=== PATIENT | female | born 1975 | race American Indian/Alaskan Native ===

== ENCOUNTER 2017-09-23 07:35 | Outpatient (CLI) | payer MEDICAID, OTHER ==
--- NOTE | 2017-09-23 11:24 | Ultrasound Report ---
ULTRASOUND EXTREMITY NONVASCULAR LIMITED LEFT History: Buttock pain. Technique: Targeted turcios scale ultrasound was performed in both gluteal regions at the site of abnormality. Findings: I spoke with the patient personally after the images were acquired. The patient reports a history of cosmetic injection of an unknown substance into both gluteal regions approximately 19 years ago. This apparently was not performed in a hospital setting. The patient was sent to this facility by her surgeon for imaging to determine what substance was injected into the gluteal regions. The images demonstrate an inhomogeneous echotexture in both gluteal regions. There are lobular ill-defined areas of anechoic signal on ultrasound which resemble cysts. There is echogenic material surrounding these anechoic areas with extensive dirty shadowing and a snowstorm appearance. There is no discrete mass or fluid collection. There are linear echogenic areas throughout the soft tissues which could represent rim calcifications. In my opinion, the most likely substance would be silicone although fat necrosis can have this appearance. Impression: Overall there is a nonspecific heterogeneous pattern in both gluteal regions as outlined above. After a little research, I feel the most likely substance would be free silicone injection. Fat necrosis can also have this appearance. The CT of the pelvis may prove useful in this patient particularly if it demonstrates multiple soft tissue nodules with rim calcifications. I cannot say with certainty what was injected but I feel that free silicone injection is the most likely explanation.
== END 2017-09-23 07:36 | disposition home or self-care (01) ==
LOC: US 07:35
PROVIDERS: ATTEND Hospitalist
DX: R52 Pain, unspecified (principal); R10.2 Pelvic and perineal pain

== ENCOUNTER 2018-01-22 16:43 | Outpatient (CLI) | payer OTHER ==
[2018-01-22 17:03] LABS: Basophils % (Auto) 0.4 % (0.0-1.8); Eosinophils # (Auto) 0.1 K/mm3 (0.0-0.4); Eosinophils % (Auto) 0.9 % (0.0-4.3); Hematocrit 42.7 % (30.3-42.9); Hemoglobin 13.9 gm/dl (10.1-14.3); Lymphocytes # (Auto) 1.9 K/mm3 (1.2-5.4); Lymphocytes % (Auto) 23.5 % (13.4-35.0); Mean Corpuscular HGB Conc 33 % (30-34); Mean Corpuscular Volume 84 fl (79-97); Monocytes # (Auto) 0.6 K/mm3 (0.0-0.8); Monocytes % (Auto) 7.2 % (0.0-7.3); Platelet Count 283 K/mm3 (140-440); Red Cell Distribution Width 14.3 % (13.2-15.2)
[2018-01-22 17:14] LABS: INR 0.95 (0.87-1.13)
[2018-01-22 17:15] LABS: Partial Thromboplastin Time 24.4 Sec. (24.2-36.6)
[2018-01-22 17:19] LABS: Alanine Aminotransferase 22 units/L (7-56); BUN/Creatinine Ratio 22; Blood Urea Nitrogen 20 mg/dL (7-17); Calcium 8.7 mg/dL (8.4-10.2); Hemolysis Index 15
== END 2018-01-22 16:44 | disposition home or self-care (01) ==
LOC: LAB 16:43
DX: Z01.812 Encounter for preprocedural laboratory examination (principal)
CPT/HCPCS: 36415; 80053; 84703; 85025; 85610; 85730; 87806